=== PATIENT | female | born 1985 | race Caucasian/White ===

== ENCOUNTER 2024-08-25 06:21 | Day surgery (SDC) | payer BC, SELFPAY | END 2024-08-25 11:58 | disposition home or self-care (01) | LOC: GI 06:21 | PROVIDERS: ATTENDING PHYSICIAN Internal Medicine | DX: R13.10 Dysphagia, unspecified (principal); K22.89 Other specified disease of esophagus; K29.50 Unspecified chronic gastritis without bleeding; K20.0 Eosinophilic esophagitis | CPT/HCPCS: 43249; 43239; 88305; 88342 ==